=== PATIENT | female | born 1980 | race Caucasian/White ===

== ENCOUNTER → 2017-05-04 15:10 | Outpatient (CLI) | payer OTHER, SELFPAY ==
--- NOTE | 2017-05-04 15:17 | XR_ITS ---
XR wrist LT min 3V HISTORY: ITS.REASON: Left wrist pain ORDERING PHYSICIAN: Jaskaran Overton MD PATIENT AGE: 36 years COMPARISON: None FINDINGS: No fracture or dislocation. No lytic or blastic change. There is normal mineralization.. The joint spaces are well-preserved. No significant degenerative/arthritic changes. No erosive changes evident.. There is a nonspecific small sclerotic focus involving the central aspect of the distal radius measuring 5 mm nonspecific and could be due to a small bone island. IMPRESSION: No acute finding. Sclerotic focus of the distal radius which could be due to a small bone island
--- NOTE | 2017-05-04 15:17 | XR_ITS ---
XR wrist RT min 3V HISTORY: ITS.REASON: Right wrist pain ORDERING PHYSICIAN: Jaskaran Overton MD PATIENT AGE: 36 years COMPARISON: None FINDINGS: There is a bone plate present over the anterior aspect of the distal radius stabilizing an old distal radial fracture. No acute fracture or dislocation. No lytic or blastic change. No significant arthritic change. There is minimal calcification distal to the tip of the ulnar styloid process nonspecific. IMPRESSION: Prior ORIF distal radial fracture with good alignment, no acute finding
== END ==
PROVIDERS: Visit Provider Orthopaedic Surgery
DX: M25.531 Pain in right wrist (principal); M25.532 Pain in left wrist
CPT/HCPCS: 73110